=== PATIENT | male | born 1975 ===

== ENCOUNTER 2016-07-13 01:05 | Emergency (ER) | payer OTHER ==
--- NOTE | 2016-07-13 01:32 | ED PDOC ---
HPI: Psych/Substance Abuse Time Seen by Provider: 07/13/16 01:14 Chief Complaint (Nursing): Psychiatric Evaluation Chief Complaint (Provider): alcohol intoxication ED Caveat: Intoxicated History Per: Patient History/Exam Limitations: intoxication Onset/Duration Of Symptoms: Mins Current Symptoms Are (Timing): Still Present Additional Complaint(s): 40yo male presents to the ED for evaluation of bizarre behavior. Patient reportedly jumped in front of EMS ambulance stating "kill me." Hx is limited due to patient's patient's emotionally labile state. Denies any further medical or psychiatric complaints. Past Medical History Reviewed: Historical Data, Nursing Documentation, Vital Signs, Unable To Obtain (due to intoxication ) Vital Signs: Last Vital Signs Temp 99 F 07/13/16 01:10 Pulse 87 07/13/16 01:10 Resp 16 07/13/16 01:10 BP 139/87 07/13/16 01:10 Pulse Ox 100 07/13/16 01:10 - Medical History PMH: Bipolar Disorder Denies: Chronic Kidney Disease - Family History Family History: States: Unknown Family Hx - Home Medications Home Medications: Ambulatory Orders Medication Instructions Recorded Benztropine [Cogentin] 1 mg PO BID #60 tab 02/03/16 Divalproex [Depakote ER] 500 mg PO BID #60 ter 02/03/16 risperiDONE [RisperDAL Tab] 1 mg PO DAILY #30 tab 02/03/16 risperiDONE [RisperDAL Tab] 3 mg PO QPM #30 tab 02/03/16 traZODone [Desyrel] 100 mg PO HS PRN #60 tab 02/03/16 - Allergies Allergies/Adverse Reactions: Allergies Allergy/AdvReac Type Severity Reaction Status Date / Time No Known Allergies Allergy Verified 01/25/16 21:43 Review of Systems ROS Statement: Except As Marked, All Systems Reviewed And Found Negative Psych: Positive for: Suicidal ideation Physical Exam - Reviewed Nursing Documentation Reviewed: Yes Vital Signs Reviewed: Yes - Physical Exam Appears: Positive for: Well (agitated ), No Acute Distress Head Exam: Positive for: ATRAUMATIC, NORMAL INSPECTION, NORMOCEPHALIC Skin: Positive for: Normal Color, Warm, Dry Eye Exam: Positive for: Normal appearance, EOMI, PERRL ENT: Positive for: Normal ENT Inspection Neck: Positive for: Normal, Painless ROM, Supple Cardiovascular/Chest: Positive for: Regular Rate, Rhythm. Negative for: Murmur , Tachycardia Respiratory: Positive for: Normal Breath Sounds. Negative for: Wheezing, Respiratory Distress Gastrointestinal/Abdominal: Positive for: Normal Exam, Soft. Negative for: Tenderness Back: Positive for: Normal Inspection Extremity: Positive for: Normal ROM. Negative for: Deformity, Swelling Neurologic/Psych: Positive for: Alert, instrumentation controls engineer II-XII, Mood/Affect (agitated, screaming at staff). Negative for: Oriented, Motor/Sensory Deficits, Facial Droop - Laboratory Results Result Diagrams: 07/13/16 02:36 07/13/16 02:36 - ECG O2 Sat by Pulse Oximetry: 100 Pulse Ox Interpretation: Normal (RA) Medical Decision Making Medical Decision Makin: Impression: alcohol intoxication w/ SI Plan: Labs crisis eval Ativan 2mg IM, Haldol 5mg IM ED obs reassess Patient s/o to Dr. Tamez at 0700 pending sobriety and crisis eval. Scribe Attestation: Documented by Karolina Muse acting as a scribe for Jayme Manjarrez MD. Provider Scribe Attestation: All medical record entries made by the Scribe were at my direction and personally dictated by me. I have reviewed the chart and agree that the record accurately reflects my personal performance of the history, physical exam, medical decision making, and the department course for this patient. I have also personally directed, reviewed, and agree with the discharge instructions and disposition. ED OBSERVATION Date of observation admission: 07/13/16 Time of observation admission: 01:15 - Observation admission statement Patient is being placed in observation because:: alcohol intoxication and SI - Goals of Observation Goals of observation are:: pending sobriety and crisis eval - Progress Note Progress Note: 07/13/16 05:25 Pt. once again became violent, attempted to swing fists at staff, required further chemical and physical restraints. Disposition - Clinical Impression Clinical Impression: Bipolar 1 disorder - Patient ED Disposition Is Patient to be Admitted: Transfer of Care - Disposition Disposition: Transfer of Care Disposition Time: 07:00 Condition: STABLE Patient Signed Over To: Marcia Tamez Handoff Comments: pending crisis eval
[2016-07-13 03:03] LABS: BASO % 0.4 % (0.0-2.0); EOS % 0.1 % (0.0-4.0); HEMATOCRIT 41.9 % (35.0-51.0); LYMPH # 1.6 K/uL (1.0-4.3); LYMPH % 14.8 % (20.0-40.0); MEAN CELL VOLUME 85.4 fl (80.0-94.0); MEAN CORPUSCULAR HEMOGLOBIN 29.8 pg (27.0-31.0); MEAN CORPUSCULAR HGB CONC 34.9 g/dL (33.0-37.0); MEAN PLATELET VOLUME 7.9 fl (7.2-11.7); MONO # 0.8 K/uL (0.0-0.8); MONO % 7.4 % (0.0-10.0); NEUT # 8.3 K/uL (1.8-7.0); NEUT % 77.3 % (50.0-75.0); RED CELL DISTRIBUTION WIDTH 13.2 % (11.5-14.5); WHITE BLOOD COUNT 10.7 K/uL (4.8-10.8)
[2016-07-13 03:12] LABS: CHLORIDE 103 mmol/L (98-107); POTASSIUM 3.8 MMOL/L (3.6-5.0); SODIUM 140 mmol/l (132-148)
[2016-07-13 03:15] LABS: ALCOHOL SERUM < 10 mg/dl (0-10); BLOOD UREA NITROGEN 12 mg/dl (9-20); CARBON DIOXIDE 23 mmol/L (22-30); GFR AFRICAN-AMERICAN > 60; GLUCOSE,RANDOM 118 mg/dL (75-110)
[2016-07-13 03:16] LABS: CALCIUM 9.5 mg/dL (8.4-10.2)
[2016-07-13] MEDS ORDERED: DiphenhydrAMINE 50 mg/ml Inj ONE (05:18)
[2016-07-13] MEDS ORDERED: DiphenhydrAMINE 50 mg/ml Inj IM STA (05:25)
[2016-07-13 06:02] LABS: RBC URINE 1 /hpf (0-3); URINE BACTERIA RARE (<OCC); URINE BILIRUBIN NEGATIVE (NEGATIVE); URINE BLOOD NEGATIVE (NEGATIVE); URINE COLOR YELLOW (YELLOW); URINE GLUCOSE (UA) NEG (Normal); URINE KETONE NEGATIVE (NEGATIVE); URINE LEUKOCYTE ESTERASE NEG Leu/uL (Negative); URINE PROTEIN NEGATIVE (NEGATIVE); URINE UROBILINOGEN 0.2-1.0 mg/dL (0.2-1.0); WBC URINE 1 /hpf (0-5)
--- NOTE | 2016-07-13 07:23 | ED PDOC ---
- Laboratory Results Result Diagrams: 07/13/16 02:36 07/13/16 02:36 - ECG ECG: Positive for: Viewed By Me ECG Rhythm: Positive for: Normal QRS Interpretation Of ECG: no acute finding Rate: 88 O2 Sat by Pulse Oximetry: 100 - Radiology X-Ray: Interpreted by Me, Viewed By Me X-Ray Interpretation: No Acute Disease Medical Decision Making Medical Decision Making: Time: [address] Manjarrez. Patient is suicidal and persistently aggressive and agitated. Needed to be medicated a 2nd time because of persistent inability to cooperate. Pending crisis. 29: Chest x-ray: Normal 10.39a - patient is medically cleared. Disposition - Clinical Impression Clinical Impression: Schizoaffective disorder - POA Present On Arrival: None - Disposition Disposition: Other Institution ([facility] [place] Disposition Time: 10:15 Condition: STABLE
--- NOTE | 2016-07-13 11:19 | RAD ---
HISTORY: medical clearance COMPARISON: No prior. FINDINGS: LUNGS: No active pulmonary disease. PLEURA: No significant pleural effusion identified, no pneumothorax apparent. CARDIOVASCULAR: Normal. OSSEOUS STRUCTURES: No significant abnormalities. VISUALIZED UPPER ABDOMEN: Normal. OTHER FINDINGS: None. IMPRESSION: No active disease.
--- NOTE | 2016-07-13 17:02 | ED PDOC ---
- Laboratory Results Result Diagrams: 07/13/16 02:36 07/13/16 02:36 - ECG O2 Sat by Pulse Oximetry: 99 (RA) Pulse Ox Interpretation: Normal Medical Decision Making Medical Decision Makin:00 Patient is in stable condition and being signed out to me by Marcia Tamez MD pending crisis evaluation. 19:00 Patient in stable condition and being signed out to Jayem Manjarrez MD pending crisis evaluation. Scribe Attestation: Documented by Asia Leon, acting as a scribe for Chava Mckeon MD. Provider Scribe Attestation: All medical record entries made by the Scribe were at my direction and personally dictated by me. I have reviewed the chart and agree that the record accurately reflects my personal performance of the history, physical exam, medical decision making, and the department course for this patient. I have also personally directed, reviewed, and agree with the discharge instructions and disposition. Disposition - Clinical Impression Clinical Impression: Schizoaffective disorder - POA Present On Arrival: None - Disposition Disposition: Transfer of Care Disposition Time: 18:52 Condition: STABLE
[2016-07-13] MEDS ORDERED: Sterile Water 10 ML IV ONE (19:42)
[2016-07-13 19:54] VITALS: TEMP 97
--- NOTE | 2016-07-13 21:24 | ED PDOC ---
- Laboratory Results Result Diagrams: 07/13/16 02:36 07/13/16 02:36 - ECG O2 Sat by Pulse Oximetry: 99 (RA) Pulse Ox Interpretation: Normal Medical Decision Making Medical Decision Makin:00 Patient was signed out to me by Chava Mckeon pending crisis evaluation and final disposition. 0210: Patient has been accepted by [facility] [place]. Patient required additional round of chemical sedation for agitation. 0244: EMS here to transport patient to [facility] [place] for psychiatric admission. Scribe Attestation: Documented by Asia Leon, acting as a scribe for Jayem Manjarrez MD. Provider Scribe Attestation: All medical record entries made by the Scribe were at my direction and personally dictated by me. I have reviewed the chart and agree that the record accurately reflects my personal performance of the history, physical exam, medical decision making, and the department course for this patient. I have also personally directed, reviewed, and agree with the discharge instructions and disposition. Disposition - Clinical Impression Clinical Impression: Schizoaffective disorder - POA Present On Arrival: None - Disposition Disposition: Other Institution Disposition Time: 02:44 Condition: STABLE
[2016-07-14 02:11] VITALS: O2SAT 99
[2016-07-14 02:45] VITALS: BP 137/81; PULSE 96; RESP 20
--- NOTE | 2016-07-14 10:19 | CARD ---
APPROVED REPORT EKG Measurement Heart [id number] <Conclusion> Normal sinus rhythm Prolonged QT Abnormal ECG
== END 2016-07-14 03:01 | disposition short-term general hospital (02) ==
LOC: H.ER 01:05
DX: F25.9 Schizoaffective disorder, unspecified (principal); F10.129 Alcohol abuse with intoxication, unspecified; F31.9 Bipolar disorder, unspecified